=== PATIENT | female | born 1935 | race Caucasian/White ===

== ENCOUNTER 2018-05-11 05:54 | Inpatient (IN) | payer MEDICARE, OTHER ==
[2018-05-09 12:17] LABS: CLARITY,URINE SLIGHTLY CLOUDY (Clear); COLOR,URINE STRAW (Yellow); GLUCOSE, URINE NEGATIVE (Neg); KETONES,URINE NEGATIVE (Neg); LEUKOCYTE ESTERASE ,URINE SMALL (Neg); NITRITES, URINE NEGATIVE (Neg); OCCULT BLOOD,URINE NEGATIVE (Neg); PROTEIN,URINE NEGATIVE (Neg); UROBILINOGEN,URINE 0.2 E.U/dL (0.2-1.0)
[2018-05-09 12:18] LABS: BASOPHILS % (AUTO) 0.4 % (0-1); EOSINOPHILS # (AUTO) 0.1 X10'3 (0-0.9); EOSINOPHILS % (AUTO) 1.7 % (0-6); LYMPHOCYTES # (AUTO) 1.3 X10'3 (1.1-4.8); LYMPHOCYTES % (AUTO) 17.4 % (21-51); MEAN CORPUSCULAR HEMOGLOBIN 30.1 PG (27.0-31.0); MEAN CORPUSCULAR HGB CONC 33.2 % (33.0-36.5); MEAN CORPUSCULAR VOLUME 90.8 FL (78-98); MEAN PLATELET VOLUME 8.6 FL (7.4-10.4); MONOCYTES # (AUTO) 0.5 X10'3 (0-0.9); MONOCYTES % (AUTO) 6.5 % (2-12); NEUTROPHILS # (AUTO) 5.7 X10'3 (1.8-7.7); PRE OP HEMATOCRIT 43.5 % (35.0-45.0); PRE OP HEMOGLOBIN 14.4 g/dL (12.0-16.0); PRE OP PLATELET COUNT 297 X10'3 (140-440); RED BLOOD COUNT 4.79 X10'6 (4.20-5.60); RED CELL DISTRIBUTION WIDTH 13.1 % (11.5-14.5)
[2018-05-09 12:23] LABS: UA COLLECTION TYPE CLN CATCH MIDSTREAM
[2018-05-09 12:27] LABS: BACTERIA,URINE 1+ /HPF (Neg); RBC,URINE NONE SEEN /HPF (0-2); SQUAMOUS EPITHELIAL CELL,UR MODERATE /LPF (FEW); YEAST FEW /HPF (NEGATIVE)
[2018-05-09 12:30] LABS: ALBUMIN 3.8 G/DL (3.4-5.0); ALBUMIN/GLOBULIN RATIO 1.1 (1.1-1.5); ALKALINE PHOSPHATASE 67 IU/L (46-116); BLOOD UREA NITROGEN 16 MG/DL (7-18); BUN/CREATININE RATIO 20.8 (6.6-38.0); CALCIUM 9.1 MG/DL (8.5-10.1); CHLORIDE 104 MMOL/L (99-107); CREATININE 0.77 MG/DL (0.40-0.90); PRE OP ALT 22 U/L (30-65); PRE OP ANION GAP 9 (8-16); PRE OP AST 14 U/L (10-37); PRE OP BILIRUB, TOTAL 0.5 MG/DL (0.0-1.0); PRE OP GLUCOSE 92 MG/DL (70-104); PRE OP POTASSIUM 3.9 MMOL/L (3.4-5.1); PRE OP SODIUM 141 MMOL/L (135-145); TOTAL CARBON DIOXIDE 28.4 MMOL/L (24-32); TOTAL PROTEIN 7.4 G/DL (6.4-8.2); eGFR 71 ML/MIN
[2018-05-09 12:34] LABS: PRE OP PROTIME 10.1 SECONDS (9.0-12.0)
[2018-05-11] VITALS (24 sets, daily range): BP systolic 140–180; BP diastolic 63–99
[~2018-05-11] VITALS: Ht 157.5 cm; Wt 68.3 kg
[~2018-05-11 05:54] MED LIST: ASPI-611 PO; CLINDAmcin 900mg/NS 50ml IVPB 50 ML IV ONE; CYAN-19 PO; OCUVITE PO; famotidine 20mg tablet PO ONE; gentamicin inj 250 MG in normal saline 100ml IV soln 93.75 ML IV ONE; normal saline 1000ml 1,000 ML IV SCH; ringers solution, lacted 1,000 ML IV SCH
[2018-05-11] MEDS ORDERED: LIDOcaine 1% (10mg/ml) 2ml vial ONE (06:28)
[2018-05-11] MEDS ORDERED: nitroGLYCERIN-Tridil 50MG/D5W 250 ML IV PRN (07:08)
[2018-05-11] MEDS ORDERED: phenylephrine inj 10 MG in normal saline 250ml IV soln 250 ML IV PRN (07:08)
[2018-05-11] MEDS ORDERED: LIDOcaine 1% 30ml preserv. free vial ONE (07:20)
[2018-05-11] MEDS ORDERED: heparin 10,000 units/1 ML INJ ONE (07:20)
[2018-05-11] MEDS ORDERED: phenylephrine 10mg/ml inj. ONE (08:53)
[2018-05-11] MEDS ORDERED: ondansetron/PF 4mg/2ml inj ONE (08:53)
[2018-05-11] MEDS ORDERED: nitroGLYCERIN in D5W 50mg/250ml (Tridil) infusion IV ONE (08:53)
[2018-05-11] MEDS ORDERED: sevoflurane 250ml liquid IH ONE (08:53)
[2018-05-11] MEDS ORDERED: metoprolol tartrate 1mg/ml inj IV ONE (08:53)
[2018-05-11] MEDS ORDERED: fentaNYL/PF 50MCG/1 ML 2ML syringe ONE (08:56)
[2018-05-11] MEDS ORDERED: midazolam 2 mg/2 ml injection ONE (08:57)
[2018-05-11] MEDS ORDERED: ePHEDrine 50MG/ML INJ. ONE (09:39)
[2018-05-11] MEDS ORDERED: rocuronium 10mg/ml inj IV ONE (09:39)
[2018-05-11] MEDS ORDERED: propofol inj 20 ML IV ONE (09:39)
[2018-05-11] MEDS ORDERED: ringers solution, lacted 1,000 ML IV SCH (10:14)
[2018-05-11] MEDS ORDERED: meperidine/PF 25mg/ml syringe IV PRN ×3 (10:15)
[2018-05-11] MEDS ORDERED: proCHLORperazine 10 MG/2 ml inj IV PRN (10:15)
[2018-05-11] MEDS ORDERED: ondansetron/PF 4mg/2ml inj IV PRN ×2 (10:15→11:35)
[2018-05-11] MEDS ORDERED: morphine 4 MG/ML inj SYRINge IV PRN ×2 (10:15)
[2018-05-11] MEDS ORDERED: glycopyrrolate 0.2mg/ml inj ONE (11:47)
[2018-05-11] MEDS ORDERED: neostigmine methylsulfate 1 MG/ML 10ml vial ONE (11:47)
[2018-05-11] MEDS: HYDROcodone/acetaminophen 10/325mg tab PO PRN (13:01)
[2018-05-11] MEDS: potassium CL 20mEq in D5-1/2NS 1,000 ML IV SCH ×2 (13:09→21:11)
[2018-05-11] MEDS: clopidogrel 75mg tablet PO SCH (13:09)
[2018-05-11] MEDS: clindamycin 600mg/D5W 50ml 50 ML IV SCH ×2 (13:48→19:35)
[2018-05-12] VITALS (24 sets, daily range): BP systolic 101–168; BP diastolic 58–106
[2018-05-12] MEDS: clindamycin 600mg/D5W 50ml 50 ML IV SCH ×4 (02:26→19:28)
[2018-05-12] MEDS: potassium CL 20mEq in D5-1/2NS 1,000 ML IV SCH ×2 (03:32→13:51)
[2018-05-12 03:54] LABS: BASOPHILS % (AUTO) 0.2 % (0-1); EOSINOPHILS # (AUTO) 0.3 X10'3 (0-0.9); EOSINOPHILS % (AUTO) 2.4 % (0-6); HEMATOCRIT 37.1 % (35.0-45.0); HEMOGLOBIN 12.4 g/dl (12.0-16.0); LYMPHOCYTES # (AUTO) 1.3 X10'3 (1.1-4.8); LYMPHOCYTES % (AUTO) 11.4 % (21-51); MEAN CORPUSCULAR HEMOGLOBIN 30.4 PG (27.0-31.0); MEAN CORPUSCULAR HGB CONC 33.3 % (33.0-36.5); MEAN CORPUSCULAR VOLUME 91.3 FL (78-98); MEAN PLATELET VOLUME 8.8 FL (7.4-10.4); MONOCYTES # (AUTO) 0.9 X10'3 (0-0.9); MONOCYTES % (AUTO) 8.2 % (2-12); NEUTROPHILS % (AUTO) 77.8 % (42-75); PLATELET COUNT 265 X10'3 (140-440); RED BLOOD COUNT 4.07 X10'6 (4.20-5.60); RED CELL DISTRIBUTION WIDTH 13.1 % (11.5-14.5); WHITE BLOOD COUNT 11.5 X10'3 (4.5-11.0)
[2018-05-12 03:55] LABS: ALBUMIN 2.9 G/DL (3.4-5.0); ANION GAP 8 (8-16); BLOOD UREA NITROGEN 10 MG/DL (7-18); BUN/CREATININE RATIO 17.5 (6.6-38.0); CALCIUM 7.8 MG/DL (8.5-10.1); CHLORIDE 104 MMOL/L (99-107); CREATININE 0.57 MG/DL (0.40-0.90); GLUCOSE 130 MG/DL (70-104); POTASSIUM 3.9 MMOL/L (3.5-5.1); SODIUM 138 MMOL/L (135-145); TOTAL CARBON DIOXIDE 26.2 MMOL/L (24-32); eGFR > 90 ML/MIN
[2018-05-12] MEDS: clopidogrel 75mg tablet PO SCH (07:28)
[2018-05-12] MEDS: HYDROcodone/acetaminophen 10/325mg tab PO PRN (07:29)
[2018-05-12] MEDS: lactobacillus rhamnosus 10,000 MMU CELLS/CAPSULE PO SCH (19:28)
[2018-05-13] VITALS (14 sets, daily range): BP systolic 88–155; BP diastolic 51–80
[2018-05-13] MEDS: clindamycin 600mg/D5W 50ml 50 ML IV SCH ×2 (02:01→07:35)
[2018-05-13 04:59] LABS: BASOPHILS % (AUTO) 0.2 % (0-1); EOSINOPHILS # (AUTO) 0.3 X10'3 (0-0.9); EOSINOPHILS % (AUTO) 2.8 % (0-6); HEMATOCRIT 37.7 % (35.0-45.0); HEMOGLOBIN 12.8 g/dl (12.0-16.0); LYMPHOCYTES % (AUTO) 10.2 % (21-51); MEAN CORPUSCULAR HEMOGLOBIN 30.6 PG (27.0-31.0); MEAN CORPUSCULAR HGB CONC 33.9 % (33.0-36.5); MEAN CORPUSCULAR VOLUME 90.3 FL (78-98); MEAN PLATELET VOLUME 8.1 FL (7.4-10.4); MONOCYTES # (AUTO) 0.9 X10'3 (0-0.9); MONOCYTES % (AUTO) 9.1 % (2-12); NEUTROPHILS # (AUTO) 7.8 X10'3 (1.8-7.7); NEUTROPHILS % (AUTO) 77.7 % (42-75); PLATELET COUNT 259 X10'3 (140-440); RED BLOOD COUNT 4.17 X10'6 (4.20-5.60); RED CELL DISTRIBUTION WIDTH 13.3 % (11.5-14.5); WHITE BLOOD COUNT 10.1 X10'3 (4.5-11.0)
[2018-05-13 05:13] LABS: ALBUMIN 2.9 G/DL (3.4-5.0); ANION GAP 7 (8-16); BLOOD UREA NITROGEN 8 MG/DL (7-18); BUN/CREATININE RATIO 9.8 (6.6-38.0); CALCIUM 8.6 MG/DL (8.5-10.1); CHLORIDE 103 MMOL/L (99-107); CREATININE 0.82 MG/DL (0.40-0.90); GLUCOSE 105 MG/DL (70-104); POTASSIUM 4.1 MMOL/L (3.5-5.1); SODIUM 139 MMOL/L (135-145); TOTAL CARBON DIOXIDE 29.4 MMOL/L (24-32); eGFR 66 ML/MIN
[2018-05-13] MEDS: clopidogrel 75mg tablet PO SCH (07:30)
[2018-05-13] MEDS: lactobacillus rhamnosus 10,000 MMU CELLS/CAPSULE PO SCH (07:31)
== END 2018-05-13 13:57 | disposition home or self-care (01) | DRG 39 ==
LOC: PAS IN 05:54 → CICU 2S 12:38 → EDSTATUS 16:30
PROVIDERS: ADMIT Surgery; ATTEND Surgery
PROC: 03UK0KZ Supplement Right Internal Carotid Artery with Nonautologous Tissue Substitute, Open Approach (ICD-10-PCS; 2018-05-11)
PROC: 4A10X4Z Monitoring of Central Nervous Electrical Activity, External Approach (ICD-10-PCS; 2018-05-11)
PROC: 03CK0ZZ Extirpation of Matter from Right Internal Carotid Artery, Open Approach (ICD-10-PCS; principal; 2018-05-11 08:53)
DX: I65.21 Occlusion and stenosis of right carotid artery (principal); I10 Essential (primary) hypertension; M10.9 Gout, unspecified; I35.0 Nonrheumatic aortic (valve) stenosis; E78.5 Hyperlipidemia, unspecified; Z90.49 Acquired absence of other specified parts of digestive tract; Z88.2 Allergy status to sulfonamides; Z88.8 Allergy status to other drugs, medicaments and biological substances; Z79.899 Other long term (current) drug therapy; Z79.82 Long term (current) use of aspirin
CPT/HCPCS: 36415; 71046; 72040; 80048; 80053; 81001; 85025; 85610; 85730; 86885; 86900; 86901; 87070; 87077; 87088; 87186; 88300; 88305; 95813; 95816; 97116; 97162; 97530; A6257; A6258; A7000; C1768; C1887; G0378; J1580; J1644; J2175; J2250; J2370; J2405; J2704; J2710; J3010; J3490; J7030; J7120

== ENCOUNTER 2021-04-01 07:04 | Day surgery (SDC) | payer MEDICARE, OTHER ==
[2021-03-31 11:19] LABS: BASOPHILS # (AUTO) 0.1 X10'3 (0-0.2); BASOPHILS % (AUTO) 0.6 % (0-1); EOSINOPHILS # (AUTO) 0.1 X10'3 (0-0.9); EOSINOPHILS % (AUTO) 1.6 % (0-6); HEMATOCRIT 38.2 % (35.0-45.0); HEMOGLOBIN 13.1 g/dl (12.0-16.0); LYMPHOCYTES % (AUTO) 11.6 % (21-51); MEAN CORPUSCULAR HEMOGLOBIN 30.1 PG (27.0-31.0); MEAN CORPUSCULAR HGB CONC 34.2 g/dL (33.0-36.5); MEAN PLATELET VOLUME 9.1 FL (7.4-10.4); MONOCYTES # (AUTO) 0.7 X10'3 (0-0.9); MONOCYTES % (AUTO) 8.4 % (2-12); NEUTROPHILS # (AUTO) 6.9 X10'3 (1.8-7.7); NEUTROPHILS % (AUTO) 77.8 % (42-75); PLATELET COUNT 242 X10'3 (140-440); RED BLOOD COUNT 4.34 X10'6 (4.20-5.60); WHITE BLOOD COUNT 8.8 X10'3 (4.5-11.0)
[2021-03-31 11:39] LABS: ALBUMIN 3.5 G/DL (3.4-5.0); ANION GAP 9 (8-16); BLOOD UREA NITROGEN 14 MG/DL (7-18); BUN/CREATININE RATIO 17.1 (6.6-38.0); CHLORIDE 106 MMOL/L (99-107); CREATININE 0.82 MG/DL (0.40-0.90); GLUCOSE 67 MG/DL (70-104); POTASSIUM 4.1 MMOL/L (3.5-5.1); SODIUM 143 MMOL/L (135-145); TOTAL CARBON DIOXIDE 28.5 MMOL/L (24-32); eGFR 66 ML/MIN
[2021-03-31 12:04] LABS: PARTIAL THROMBOPLASTIN TIME 26 SECONDS (22-32)
[~2021-04-01] VITALS: Ht 157.5 cm; Wt 66.0 kg
[2021-04-01] VITALS (12 sets, daily range): BP systolic 108–178; BP diastolic 63–95
[~2021-04-01 07:04] MED LIST changes: -CLINDAmcin 900mg/NS 50ml IVPB 50 ML IV ONE; -CYAN-19 PO; -OCUVITE PO; -famotidine 20mg tablet PO ONE; -gentamicin inj 250 MG in normal saline 100ml IV soln 93.75 ML IV ONE; -normal saline 1000ml 1,000 ML IV SCH; -ringers solution, lacted 1,000 ML IV SCH
[2021-04-01] MEDS ORDERED: diphenhydrAMINE 25mg capsule PO PRN (07:30)
[2021-04-01] MEDS ORDERED: normal saline 1,000 ML IV SCH (07:30)
[2021-04-01] MEDS ORDERED: Vitamin B12 PO (07:30)
[2021-04-01] MEDS ORDERED: LIDOcaine/PRILOcaine 5gm cream TP ONE (07:30)
[2021-04-01] MEDS ORDERED: LORazepam 0.5 MG tablet PO PRN (07:30)
[2021-04-01] MEDS ORDERED: VIT1CAPS46 PO (07:30)
[2021-04-01] MEDS ORDERED: nitroGLYCERIN-Tridil 50MG/D5W 250 ML IV ONE (08:32)
[2021-04-01] MEDS ORDERED: heparin 1,000unit/ml 10ml vial 10 ML ONE (08:32)
[2021-04-01] MEDS ORDERED: iohexol 350 MG/ML 50ML vial IV ONE (08:32)
[2021-04-01] MEDS ORDERED: LIDOcaine 1% (10mg/ml)w/preservative injection 20ml MDV ONE (08:32)
[2021-04-01] MEDS ORDERED: iohexol 350MG/ML 100ml bottle IV ONE (08:32)
[2021-04-01] MEDS ORDERED: midazolam 1 mg/ML 2ml injection ONE (08:33)
[2021-04-01] MEDS ORDERED: fentaNYL/PF 50MCG/1 ML 2ML syringe ONE (08:33)
[2021-04-01] MEDS ORDERED: verapamil 2.5 mg/ml inj IV ONE (08:59)
[2021-04-01 10:16] LABS: ISTAT HGB ART 12.9 g/dl (12.0-16.0); ISTAT Hct ART 38 %PCV (35-48); ISTAT O2 SATURATION ARTERIAL 95 % (95-98); ISTAT SOURCE BLNK
[2021-04-01 10:16] LABS: ISTAT Hct MIX 38 %PCV (35-48); ISTAT O2 SATURATION MIX VENOUS 71 % (60-80); ISTAT SOURCE BLNK
[2021-04-01] MEDS ORDERED: normal saline 1000ml 1,000 ML IV SCH (10:30)
== END 2021-04-01 15:00 | disposition home or self-care (01) ==
LOC: SSTAY O 07:04
PROVIDERS: ATTEND Internal Medicine Cardiovascular Disease
DX: I35.0 Nonrheumatic aortic (valve) stenosis (principal); I25.10 Atherosclerotic heart disease of native coronary artery without angina pectoris; I10 Essential (primary) hypertension; I65.23 Occlusion and stenosis of bilateral carotid arteries; I34.0 Nonrheumatic mitral (valve) insufficiency; Z88.2 Allergy status to sulfonamides; Z79.899 Other long term (current) drug therapy; Z79.82 Long term (current) use of aspirin; Z98.41 Cataract extraction status, right eye; Z98.42 Cataract extraction status, left eye; Z90.49 Acquired absence of other specified parts of digestive tract; Z98.890 Other specified postprocedural states; Z82.49 Family history of ischemic heart disease and other diseases of the circulatory system; Z80.9 Family history of malignant neoplasm, unspecified
CPT/HCPCS: 36415; 76937; 80048; 82803; 85014; 85025; 85610; 85730; 93005; 93460; 93567; 99152; 99153; C1751; C1769; C1894; J1644; J2001; J2250; J3010; J7030; Q0163; Q9967; A4620; A5120; J3490

== ENCOUNTER 2021-04-03 10:24 | Outpatient (CLI) | payer MEDICARE, OTHER ==
[~2021-04-03 10:24] MED LIST changes: +VIT1CAPS46 PO; +Vitamin B12 PO
[2021-04-03 11:19] LABS: BASOPHILS # (AUTO) 0.1 X10'3 (0-0.2); BASOPHILS % (AUTO) 0.6 % (0-1); EOSINOPHILS # (AUTO) 0.1 X10'3 (0-0.9); HEMATOCRIT 39.1 % (35.0-45.0); HEMOGLOBIN 13.2 g/dl (12.0-16.0); LYMPHOCYTES # (AUTO) 1.2 X10'3 (1.1-4.8); LYMPHOCYTES % (AUTO) 11.3 % (21-51); MEAN CORPUSCULAR HGB CONC 33.7 g/dL (33.0-36.5); MEAN CORPUSCULAR VOLUME 88.9 FL (78-98); MEAN PLATELET VOLUME 9.4 FL (7.4-10.4); MONOCYTES # (AUTO) 0.8 X10'3 (0-0.9); MONOCYTES % (AUTO) 7.6 % (2-12); NEUTROPHILS # (AUTO) 8.3 X10'3 (1.8-7.7); NEUTROPHILS % (AUTO) 79.5 % (42-75); PLATELET COUNT 242 X10'3 (140-440); WHITE BLOOD COUNT 10.4 X10'3 (4.5-11.0)
[2021-04-03 11:34] LABS: PARTIAL THROMBOPLASTIN TIME 29 SECONDS (22-32)
[2021-04-03 11:39] LABS: ALANINE AMINOTRANSFERASE 19 U/L (12-78); ALBUMIN 3.6 G/DL (3.4-5.0); ALKALINE PHOSPHATASE 77 IU/L (46-116); ANION GAP 10 (8-16); ASPARTATE AMINO TRANSFERASE 16 U/L (10-37); BILIRUBIN,TOTAL 0.5 MG/DL (0.1-1.0); BLOOD UREA NITROGEN 12 MG/DL (7-18); BUN/CREATININE RATIO 15.6 (6.6-38.0); CALCIUM 8.8 MG/DL (8.5-10.1); CHLORIDE 106 MMOL/L (99-107); CREATININE 0.77 MG/DL (0.40-0.90); GLUCOSE 103 MG/DL (70-104); POTASSIUM 4.1 MMOL/L (3.5-5.1); SODIUM 144 MMOL/L (135-145); TOTAL CARBON DIOXIDE 28.1 MMOL/L (24-32); TOTAL PROTEIN 7.3 G/DL (6.4-8.2); eGFR 71 ML/MIN
[2021-04-03] MEDS ORDERED: IODIXANOL 320 MG/ML INFUS..BTL 50ML IV ONE (11:47)
[2021-04-03] MEDS ORDERED: IODIXANOL 320 MG/ML INFUS..BTL 100ML IV ONE (11:47)
[2021-04-03 12:15] VITALS: BP 178/84
[2021-04-03] MEDS ORDERED: metoprolol tartrate 1mg/ml inj IV ONE (12:18)
[2021-04-03 12:25] VITALS: BP 164/72
[2021-04-03 12:35] VITALS: BP 182/96
== END 2021-04-03 23:59 | disposition home or self-care (01) ==
LOC: RAD 10:24
PROVIDERS: ATTEND Internal Medicine Cardiovascular Disease
DX: I35.0 Nonrheumatic aortic (valve) stenosis (principal); R06.02 Shortness of breath; I65.29 Occlusion and stenosis of unspecified carotid artery; R94.2 Abnormal results of pulmonary function studies; K57.30 Diverticulosis of large intestine without perforation or abscess without bleeding
CPT/HCPCS: 36415; 71046; 71275; 74174; 80053; 85025; 85610; 85730; 94010; 94727; 94729; Q9967; J3490

== ENCOUNTER 2021-06-04 05:39 | Inpatient (IN) | payer MEDICARE, OTHER ==
[2021-05-28 14:29] LABS: BASOPHILS % (AUTO) 0.6 % (0-1); EOSINOPHILS # (AUTO) 0.2 X10'3 (0-0.9); EOSINOPHILS % (AUTO) 1.9 % (0-6); LYMPHOCYTES # (AUTO) 1.3 X10'3 (1.1-4.8); LYMPHOCYTES % (AUTO) 15.5 % (21-51); MEAN CORPUSCULAR HEMOGLOBIN 29.1 PG (27.0-31.0); MEAN CORPUSCULAR VOLUME 88.3 FL (78-98); MEAN PLATELET VOLUME 8.9 FL (7.4-10.4); MONOCYTES # (AUTO) 0.6 X10'3 (0-0.9); MONOCYTES % (AUTO) 7.4 % (2-12); NEUTROPHILS # (AUTO) 6.4 X10'3 (1.8-7.7); NEUTROPHILS % (AUTO) 74.6 % (42-75); PRE OP HEMATOCRIT 40.7 % (35.0-45.0); PRE OP HEMOGLOBIN 13.4 g/dL (12.0-16.0); PRE OP PLATELET COUNT 257 X10'3 (140-440); RED BLOOD COUNT 4.61 X10'6 (4.20-5.60); RED CELL DISTRIBUTION WIDTH 14.4 % (11.5-14.5)
[2021-05-28 14:31] LABS: CLARITY,URINE CLEAR (Clear); GLUCOSE, URINE NEGATIVE (Neg); KETONES,URINE NEGATIVE (Neg); LEUKOCYTE ESTERASE ,URINE NEGATIVE (Neg); NITRITES, URINE NEGATIVE (Neg); OCCULT BLOOD,URINE NEGATIVE (Neg); PH,URINE 6.5 (4.8-8.0); PROTEIN,URINE NEGATIVE (Neg); UROBILINOGEN,URINE 0.2 E.U/dL (0.2-1.0)
[2021-05-28 14:35] LABS: COLOR,URINE STRAW (Yellow); UA COLLECTION TYPE NON-SPECIFIED
[2021-05-28 14:42] LABS: ALBUMIN 4.1 G/DL (3.4-5.0); ALBUMIN/GLOBULIN RATIO 1.1 (1.1-1.5); ALKALINE PHOSPHATASE 82 IU/L (46-116); BLOOD UREA NITROGEN 16 MG/DL (7-18); BUN/CREATININE RATIO 20.3 (6.6-38.0); CHLORIDE 102 MMOL/L (99-107); CREATININE 0.79 MG/DL (0.40-0.90); PRE OP ALT 22 U/L (30-65); PRE OP ANION GAP 11 (8-16); PRE OP AST 20 U/L (10-37); PRE OP BILIRUB, TOTAL 0.4 MG/DL (0.0-1.0); PRE OP GLUCOSE 91 MG/DL (70-104); PRE OP POTASSIUM 3.9 MMOL/L (3.4-5.1); PRE OP SODIUM 141 MMOL/L (135-145); TOTAL CARBON DIOXIDE 28.3 MMOL/L (24-32); TOTAL PROTEIN 7.9 G/DL (6.4-8.2); eGFR 69 ML/MIN
[2021-05-28 14:57] LABS: PRE OP PROTIME 10.4 SECONDS (9.0-12.0)
[~2021-06-04] VITALS: Ht 157.5 cm; Wt 65.9 kg
[2021-06-04] VITALS (19 sets, daily range): BP systolic 106–164; BP diastolic 43–81
[~2021-06-04 05:39] MED LIST changes: +VANCOMYCIN INJ 1000 MG in NORMAL SALINE 250ml IV.SOLN IV ONE; +aspirin 325mg tablet PO ONE; +famotidine 20mg tablet PO ONE; +ondansetron/PF 4mg/2ml inj IV PRN; +ringers solution, lacted 1,000 ML IV SCH
[2021-06-04] MEDS: phenylephrine 50 MG in NS 250ml IVPB IV SCH (06:22)
[2021-06-04] MEDS: nitroPRUSSIDE (NIPRIDE) (200MCG/ML) 100ML Drip IV SCH (06:22)
[2021-06-04] MEDS ORDERED: iohexol 350MG/ML 100ml bottle IV ONE (06:37)
[2021-06-04] MEDS ORDERED: LIDOcaine 1% (10mg/ml)w/preservative injection 20ml MDV ONE (06:37)
[2021-06-04] MEDS ORDERED: iohexol 350 MG/ML 50ML vial IV ONE (06:37)
[2021-06-04] MEDS ORDERED: heparin 1,000 UNITS/NS 500ml 1,500 ML ONE (06:38)
[2021-06-04] MEDS ORDERED: protamine sulfate 10mg/ml inj. ONE (06:40)
[2021-06-04] MEDS ORDERED: REMIFENTANIL (Ultiva) 1 MG VIAL IV ONE (06:58)
[2021-06-04] MEDS ORDERED: MIDAZolam 1 MG/ML 5ML VIAL ONE (06:58)
[2021-06-04] MEDS ORDERED: LIDOcaine 1%/PF 5ML 10 MG/ML VIAL ONE (07:15)
[2021-06-04] MEDS ORDERED: propofol inj 20 ML IV ONE (07:15)
[2021-06-04] MEDS ORDERED: heparin 1,000unit/ml 10ml vial 10 ML ONE (07:29)
--- NOTE | 2021-06-04 08:30 | NUR ---
Received from OR via MED SURG BED , accompanied by Anesthesiologist JOSE and report given by Anesthesiolgist. PATIENT WITH ART LINE IN LEFT UE AND 20G PIV IN LEFT UE. PATIENT WTIH LEFT AND RIGHT INGUINAL SITES THAT ARE CDI. PATIENT WITH 10L MASK ON WITH 100% SATURATIONS. PUSH PULLS, HIDE TRIMMER ALL EQUAL, TONGUE MIDLINE. Addendum: 06/04/21 at 0849 by Robson Quiñones RN, RN Amended: Links added.
[2021-06-04] MEDS ORDERED: potassium CL 10mEq/100ml bag 100 ML IV PRN (08:40)
[2021-06-04] MEDS ORDERED: potassium Cl 20 mEq SR tablet PO PRN (08:40)
[2021-06-04] MEDS ORDERED: ALPRAZolam 0.25mg tablet PO PRN (08:40)
[2021-06-04] MEDS: normal saline 1000ml 1,000 ML IV SCH ×2 (08:40→18:40)
[2021-06-04] MEDS ORDERED: proCHLORperazine 10 MG/2 ml inj IV PRN ×2 (08:40→10:50)
[2021-06-04] MEDS ORDERED: docusate sod 100mg capsule PO PRN (08:40)
[2021-06-04] MEDS ORDERED: diphenhydrAMINE 25mg capsule PO PRN (08:40)
[2021-06-04] MEDS ORDERED: magnesium 4gm in 100ml NS 100 ML IV PRN (08:40)
[2021-06-04] MEDS ORDERED: hydrALAZINE 20mg/ml inj. IV PRN (08:40)
[2021-06-04] MEDS ORDERED: magnesium 2GM in 50ml NS 50 ML IV PRN (08:40)
[2021-06-04] MEDS ORDERED: labetalol 20mg/4ml (5mg/ml) syringe IV PRN (08:40)
[2021-06-04] MEDS ORDERED: ondansetron/PF 4mg/2ml inj IV PRN ×2 (08:40→10:50)
[2021-06-04] MEDS ORDERED: potassium Cl 40MEQ/1/2NS 520ml 520 ML IV PRN (08:40)
[2021-06-04] MEDS ORDERED: acetaminophen 325mg tablet PO PRN (08:40)
[2021-06-04] MEDS ORDERED: pantoprazole 40mg Tablet.DR PO PRN (08:40)
--- NOTE | 2021-06-04 09:25 | NUR ---
PUSH PULLS, TAIL END RIDER STILL INTACT. VSS. DENIES PAIN. TONGUE MIDLINE. GROIN CHECKS SAME UPON ARRIVAL. NO DRAINAGE. + DPS BILATERALLY. ALL INTACT. Addendum: 06/04/21 at 0925 by Robson Quiñones RN, RN Amended: Links added.
--- NOTE | 2021-06-04 09:52 | NUR ---
PATIENT HAS MET ALL CRITERIA FOR TRANSFER TO THE SURGICAL/[facility]/PCU/ORTHO/ICU FLOOR. VSS. DRESSINGS INTACT. BED LOW, CALL LIGHT PRESENT AND 2 RAILS UP. RN PRESENT TO ACCEPT CARE OF PATIENT AND REPORT HAS BEEN CALLED. ALL QUESTIONS ANSWERED TO ACCEPTING RN KEVIN. SUAREZ PRESENT AT BEDSIDE. Addendum: 06/04/21 at 0957 by Robson Greco - ALEJO RN Amended: Links added.
[2021-06-04] MEDS ORDERED: CYAN-51 PO (10:39)
[2021-06-04] MEDS ORDERED: morphine 4 MG/ML inj SYRINge IV PRN (10:50)
[2021-06-04] MEDS ORDERED: ringers solution, lacted 1,000 ML IV SCH (10:50)
[2021-06-04] MEDS ORDERED: meperidine/PF 25mg/ml syringe IV PRN ×3 (10:50)
[2021-06-04] MEDS ORDERED: morphine 2 MG/ML inj. syringe IV PRN (10:50)
[2021-06-04] MEDS: sod chloride 0.9% 10ml flush syringe IV SCH (15:53)
[2021-06-04] MEDS: beta-carotene(A) w/C & E + minerals tab PO SCH (21:51)
[2021-06-04] MEDS: vancomycin/NS 1 GM ADD-VANTAGE 250 ML IV SCH (21:51)
[2021-06-05] MEDS: sod chloride 0.9% 10ml flush syringe IV SCH ×2 (00:45→07:54)
[2021-06-05 02:00] VITALS: BP 113/52
[2021-06-05] MEDS: nitroPRUSSIDE (NIPRIDE) (200MCG/ML) 100ML Drip IV SCH (02:12)
[2021-06-05 04:34] LABS: BASOPHILS % (AUTO) 0.3 % (0-1); EOSINOPHILS # (AUTO) 0.1 X10'3 (0-0.9); EOSINOPHILS % (AUTO) 0.6 % (0-6); HEMATOCRIT 32.7 % (35.0-45.0); LYMPHOCYTES # (AUTO) 0.7 X10'3 (1.1-4.8); MEAN CORPUSCULAR HGB CONC 33.6 g/dL (33.0-36.5); MEAN CORPUSCULAR VOLUME 86.2 FL (78-98); MONOCYTES % (AUTO) 8.2 % (2-12); NEUTROPHILS # (AUTO) 10.4 X10'3 (1.8-7.7); NEUTROPHILS % (AUTO) 84.9 % (42-75); PLATELET COUNT 172 X10'3 (140-440); WHITE BLOOD COUNT 12.3 X10'3 (4.5-11.0)
[2021-06-05] MEDS: normal saline 1000ml 1,000 ML IV SCH (04:40)
[2021-06-05 04:54] LABS: ALANINE AMINOTRANSFERASE 19 U/L (12-78); ALBUMIN/GLOBULIN RATIO 1.2 (1.1-1.5); ALKALINE PHOSPHATASE 62 IU/L (46-116); ANION GAP 7 (8-16); ASPARTATE AMINO TRANSFERASE 22 U/L (10-37); BILIRUBIN,TOTAL 0.7 MG/DL (0.1-1.0); BLOOD UREA NITROGEN 21 MG/DL (7-18); BUN/CREATININE RATIO 23.3 (6.6-38.0); CALCIUM 8.7 MG/DL (8.5-10.1); CHLORIDE 106 MMOL/L (99-107); GLUCOSE 116 MG/DL (70-104); MAGNESIUM 1.9 MG/DL (1.5-2.4); POTASSIUM 4.1 MMOL/L (3.5-5.1); SODIUM 138 MMOL/L (135-145); TOTAL PROTEIN 5.6 G/DL (6.4-8.2); eGFR 59 ML/MIN
[2021-06-05 06:00] VITALS: BP 108/51
--- NOTE | 2021-06-05 07:16 | NUR ---
Problems reprioritized. Patient report given, questions answered & plan of care reviewed with JOSELO DHILLON.
[2021-06-05] MEDS: phenylephrine 50 MG in NS 250ml IVPB IV SCH (07:23)
[2021-06-05] MEDS: vancomycin/NS 1 GM ADD-VANTAGE 250 ML IV SCH (07:46)
[2021-06-05] MEDS: beta-carotene(A) w/C & E + minerals tab PO SCH (07:46)
[2021-06-05] MEDS ORDERED: cyanocobalamin 500mcg tablet PO SCH (08:00)
[2021-06-05] MEDS ORDERED: non-formulary drug (Aspirin (Aspir 81) 1 TAB) PO SCH (08:00)
[2021-06-05] MEDS ORDERED: aspirin 81mg tab.chew PO SCH (08:30)
--- NOTE | 2021-06-05 14:59 | NUR ---
Pt stable for D/C Pt stable for d/c. All d/c ppwk reviewed with patient - pt verbalized understanding. Reinterated the importance of follow up appts - pt verbalized understanding. All personal belongings were sent with patient. Pt was able to dress themselves and was wheeled out in W/C by nursing staff to private vehicle where granddaughter was waiting. No new RX.
== END 2021-06-05 12:59 | disposition home or self-care (01) | DRG 267 ==
LOC: PAS IN 05:39 → MED 3N 09:45
PROVIDERS: ADMIT Internal Medicine Cardiovascular Disease; ATTEND Internal Medicine Cardiovascular Disease
PROC: 03HY32Z Insertion of Monitoring Device into Upper Artery, Percutaneous Approach (ICD-10-PCS; 2021-06-04)
PROC: B3101ZZ Fluoroscopy of Thoracic Aorta using Low Osmolar Contrast (ICD-10-PCS; 2021-06-04)
PROC: B41G1ZZ Fluoroscopy of Left Lower Extremity Arteries using Low Osmolar Contrast (ICD-10-PCS; 2021-06-04)
PROC: B41F1ZZ Fluoroscopy of Right Lower Extremity Arteries using Low Osmolar Contrast (ICD-10-PCS; 2021-06-04)
PROC: X2RF332 Replacement of Aortic Valve using Zooplastic Tissue, Rapid Deployment Technique, Percutaneous Approach, New Technology Group 2 (ICD-10-PCS; principal; 2021-06-04 06:48)
DX: I35.0 Nonrheumatic aortic (valve) stenosis (principal); Z00.6 Encounter for examination for normal comparison and control in clinical research program; I65.29 Occlusion and stenosis of unspecified carotid artery; Z20.822 Contact with and (suspected) exposure to COVID-19
CPT/HCPCS: 33361; 36415; 71045; 71046; 80053; 81003; 82948; 83735; 83880; 85025; 85347; 85610; 85730; 86885; 86900; 86901; 86920; 87081; 93005; 93308; A4618; A6258; A6449; C1756; C1760; C1769; C1894; G0378; J1644; J2250; J2370; J2405; J2704; J2720; J3370; J3490; J7030; J7040; J7050; J7120; Q9967; U0003; U0005

== ENCOUNTER 2021-07-06 09:30 | Outpatient (CLI) | payer MEDICARE, OTHER ==
[~2021-07-06 09:30] MED LIST changes: +CYAN-51 PO; -VANCOMYCIN INJ 1000 MG in NORMAL SALINE 250ml IV.SOLN IV ONE; -Vitamin B12 PO; -aspirin 325mg tablet PO ONE; -famotidine 20mg tablet PO ONE; -ondansetron/PF 4mg/2ml inj IV PRN; -ringers solution, lacted 1,000 ML IV SCH
== END 2021-07-06 23:59 | disposition home or self-care (01) ==
LOC: CARD DIAG 09:30
PROVIDERS: ATTEND Internal Medicine Cardiovascular Disease
DX: Z48.812 Encounter for surgical aftercare following surgery on the circulatory system (principal); I08.8 Other rheumatic multiple valve diseases; Z95.2 Presence of prosthetic heart valve
CPT/HCPCS: 93005; 93306